=== PATIENT | male | born 1985 | race Caucasian/White ===

== ENCOUNTER 2018-11-16 16:47 | Emergency (ER) | payer BC, OTHER ==
[2018-11-16] MEDS ORDERED: DIPHTH,PERTUSS(ACELL),TET 0.5 ML DISP.SYRIN IM ONE ×2 (16:55→17:10)
--- NOTE | 2018-11-16 16:55 | PDOC ---
Rapid Medical Evaluation Time Seen by Provider: 11/16/18 16:49 Medical Evaluation: Allergies Allergy/AdvReac Type Severity Reaction Status Date / Time No Known Allergies Allergy Verified 02/01/15 00:11 11/16/18 16:50 Patient presents to ED with complaints of: fell into gas holding tank which lifted up when he steeped on it yesterday . Now with left leg and lower back pain, hx diabetes, unknown last tdap patient on brief exam: noted abrasion to left ant gil, tender over posterior aspect of left knee Patient ordered for: tdap Patient to proceed to the ED Discharge Disposition - Diagnosis Fall, Strain of muscle, fascia and tendon of lower back, initial encounter, Abrasion of leg, left - Discharge Dispostion Disposition: HOME Condition at time of disposition: Stable - Prescriptions Prescriptions: Cyclobenzaprine HCl [Flexeril 10 mg] 10 mg PO HS PRN #10 tablet PRN Reason: Muscle Spasms - Referrals Referrals: Dean Garcia DO [Staff Physician] - Ward Persaud MD [Primary Care Provider] - - Patient Instructions Additional Instructions: Please take the muscle relaxer as directed, Avoid antiinflamtory medications. Tylenol as directed for pain. Return to the emergency room for worsening symptoms. Please follow up with orthopedic surgery in 1-2 days for further evaluation and treatment options. Also follow up with your primary care physician for evaluation of the adrenal adenoma which is a incidental benign finding on your CT scan. - Post Discharge Activity
[2018-11-16 16:59] VITALS: BP 135/97; PULSE 84; TEMP 98.1; BMI 27.3
--- NOTE | 2018-11-16 18:43 | PDOC ---
History of Present Illness - General Stated Complaint: LEG AND LOWER BACK PAIN Time Seen by Provider: 11/16/18 16:49 - History of Present Illness Initial Comments: 11/16/18 18:37 33 y/o M with L leg and lower back pain. He states he was getting out of his car yesterday, and fell into a small lining parts sewer causing his L leg to go completely in scrapping the anterior aspect of the left leg and injuring his lower back. Past History - Past Medical History Allergies/Adverse Reactions: Allergies Allergy/AdvReac Type Severity Reaction Status Date / Time No Known Allergies Allergy Verified 11/16/18 16:53 Home Medications: Ambulatory Orders Gemfibrozil [Lopid -] 600 mg PO BID@0700,1630 #30 tablet 12/02/15 Glipizide [Glucotrol -] 5 mg PO BID@0700,1630 #30 tablet 12/02/15 Insulin (Levemir) [Levemir Vial] 18 units SQ HS #10 ml 12/02/15 Lisinopril [Prinivil] 2.5 mg PO DAILY #30 tablet 12/02/15 metFORMIN HCL [Glucophage -] 500 mg PO BID@0700,1630 #30 tablet 12/02/15 Cyclobenzaprine HCl [Flexeril 10 mg] 10 mg PO HS PRN #10 tablet 11/16/18 Anemia: No Asthma: No Cancer: No Cardiac Disorders: No CVA: No COPD: No CHF: No Dementia: No Diabetes: Yes GI Disorders: No Disorders: No HTN: No Hypercholesterolemia: No Liver Disease: No Seizures: No Thyroid Disease: No - Surgical History Abdominal Surgery: No Appendectomy: No Cardiac Surgery: No Cholecystectomy: No Lung Surgery: No Neurologic Surgery: No Orthopedic Surgery: No - Suicide/Smoking/Psychosocial Hx Smoking Status: No Smoking History: Never smoked Have you smoked in the past 12 months: No Number of Cigarettes Smoked Daily: 0 Information on smoking cessation initiated: No Hx Alcohol Use: No Drug/Substance Use Hx: No Substance Use Type: None Hx Substance Use Treatment: No Review of Systems - Review of Systems Musculoskeletal: Yes: See HPI, Back Pain *Physical Exam - Vital Signs Last Vital Signs Temp Pulse Resp BP Pulse Ox 98.1 F 84 19 135/97 96 11/16/18 16:51 11/16/18 16:51 11/16/18 16:51 11/16/18 16:51 11/16/18 16:51 - Physical Exam Comments: 11/16/18 18:40 There is a small superficial abrasion on the anterior aspect of the left lower leg without indication of infection, there is full ROM of the ankle knee and hip , Lumbar spine skin color and temperature are normal. There is midline tenderness along with bilateral paralumbar musculature spasm and tenderness, B LE are free of gross sensory motor deficits. The thighs and calfs are soft and non tender free of any gross sensory or motor deficits NVID. ED Treatment Course - RADIOLOGY Radiology Studies Ordered: Category Date Time Status LUMBAR SPINE CT W/O CONTRAST [CT] Stat CT Scan 11/16/18 18:05 Taken LEG TIB/FIB-LEFT [RAD] Stat Radiology 11/16/18 17:14 Completed SPINE-LUMBAR SACRAL [RAD] Stat Radiology 11/16/18 17:14 Completed - Medications Given in the ED: ED Medications Discontinued Medications Generic Name Dose Route Start Last Admin Trade Name Freq PRN Reason Stop Dose Admin Diphtheria/Tetanus/Acell Pertussis 0.5 ml 11/16/18 16:55 11/16/18 17:13 Boostrix - IM 11/16/18 16:56 0.5 ml .ONCE ONE Administration Medical Decision Making - Medical Decision Making 11/16/18 18:42 X-rays of the L Tib/FIB show no evidenc of fx or trauma LS x-rays show mild DDD greatest at L5-S1 with a questionable pars defect on oblique, CT was ordered. 11/16/18 19:28 R adrenal adenoma otherwise normal studies. *DC/Admit/Observation/Transfer Diagnosis at time of Disposition: Fall, Strain of muscle, fascia and tendon of lower back, initial encounter, Abrasion of leg, left Diagnosis at time of Disposition: (Ruled Out): Abrasion of leg with infection - Discharge Dispostion Disposition: HOME Condition at time of disposition: Stable Decision to Admit order: No - Referrals Referrals: Ward Persaud MD [Primary Care Provider] - Dean Garcia DO [Staff Physician] - - Patient Instructions Additional Instructions: Please take the muscle relaxer as directed, Avoid antiinflamtory medications. Tylenol as directed for pain. Return to the emergency room for worsening symptoms. Please follow up with orthopedic surgery in 1-2 days for further evaluation and treatment options. Also follow up with your primary care physician for evaluation of the adrenal adenoma which is a incidental benign finding on your CT scan. - Post Discharge Activity
== END 2018-11-16 19:45 | disposition home or self-care (01) ==
LOC: JERFT 16:47
PROC: 3E0234Z Introduction of Serum, Toxoid and Vaccine into Muscle, Percutaneous Approach (ICD-10-PCS; principal; 2018-11-16)
DX: S39.012A Strain of muscle, fascia and tendon of lower back, initial encounter (principal); S80.812A Abrasion, left lower leg, initial encounter; W17.89XA Other fall from one level to another, initial encounter; V48.4XXA Person boarding or alighting a car injured in noncollision transport accident, initial encounter; Y92.410 Unspecified street and highway as the place of occurrence of the external cause; Y93.89 Activity, other specified; Y99.8 Other external cause status
CPT/HCPCS: 72100-TC-FY; 72131-TC; 73590-TC-LT-FY; 90715; 99281-25

== ENCOUNTER 2020-06-24 13:08 | Inpatient (IN) | payer BC, OTHER ==
[2020-06-24] MEDS ORDERED: SODIUM CHLORIDE 1,000 ML IV STA (14:39)
[2020-06-24] MEDS ORDERED: DEXAMETHASONE SOD PHOSPHATE 4 MG/1 ML VIAL IVPUSH ONE (14:43)
[2020-06-24] MEDS ORDERED: DEXAMETHASONE SOD PHOSPHATE 10 MG/1 ML VIAL ONE (15:15)
[2020-06-24 15:29] LABS: BASO % 0.3 % (0-2.0); EOS % 0.7 % (0-4.5); HEMATOCRIT 46.7 % (35.4-49); HEMOGLOBIN 16.1 GM/dL (11.7-16.9); LYMPH % 9.5 % (8-40); MCH 29.8 pg (25.7-33.7); MCHC 34.6 g/dl (32.0-35.9); MEAN CELL VOLUME 86.3 fl (80-96); MEAN PLT VOLUME 8.9 fl (7.5-11.1); MONO % 6.6 % (3.8-10.2); NEUT % 82.9 % (42.8-82.8); PLATELET COUNT 489 K/MM3 (134-434); RDW 13.1 % (11.9-15.9); VENOUS BASE EXCESS -3.3 mmol/L (-2-2); VENOUS PCO2 60.4 mmHg (38-52); VENOUS PH 7.242 (7.310-7.410); WHITE BLOOD COUNT 7.5 K/mm3 (4.0-10.0)
[2020-06-24 15:36] LABS: INR 1.03 (0.83-1.09); PROTHROMBIN TIME (PATIENT) 12.6 SEC (9.7-13.0)
[2020-06-24 15:39] LABS: ACTIVATED PTT 26.4 SECONDS (25.2-36.5)
[2020-06-24 15:50] LABS: CHLORIDE 96 mmol/L (98-107); SODIUM 135 mmol/L (136-145)
[2020-06-24 15:52] LABS: ALBUMIN 3.4 g/dl (3.4-5.0); ANION GAP 10 MMOL/L (8-16); BLOOD UREA NITROGEN 14.9 mg/dL (7-18); CALCIUM 9.4 mg/dL (8.5-10.1); CO2 29 mmol/L (21-32); GLUCOSE,RANDOM 300 mg/dL (74-106)
[2020-06-24 15:55] LABS: CREATININE 1.1 mg/dL (0.55-1.3); SGOT/AST 36 U/L (15-37); SGPT/ALT 78 U/L (13-61)
[2020-06-24 15:57] LABS: LDH 405 U/L (87-246); TOT PROT 8.1 g/dl (6.4-8.2)
[2020-06-24 15:58] LABS: ALK PHOS 172 U/L (45-117)
[2020-06-24] MEDS ORDERED: INSULIN REGULAR HUMAN 100 UNITS/ML *VIAL IVPUSH ONE (16:03)
[2020-06-24] MEDS ORDERED: LACTATED RINGERS SOLUTION 1000 ML INFUS.BAG IV STA (16:05)
[2020-06-24 20:29] LABS: URINE APPEARANCE CLEAR; URINE BILIRUBIN NEGATIVE (NEGATIVE); URINE COLOR YELLOW; URINE GLUCOSE (UA) 3+ (NEGATIVE); URINE KETONE 3+ (NEGATIVE); URINE LEUK ESTERASE NEGATIVE (NEGATIVE); URINE NITRITE NEGATIVE (NEGATIVE); URINE PROTEIN NEGATIVE (NEGATIVE)
[2020-06-24] MEDS ORDERED: SENNOSIDES 8.6MG TABLET (FP) PO PRN (23:00)
[2020-06-24] MEDS ORDERED: DOCUSATE SODIUM 100 MG CAPSULE (FP) PO PRN (23:00)
[2020-06-24] MEDS ORDERED: MELATONIN 5 MG TABLETS PO PRN (23:04)
[2020-06-24] MEDS ORDERED: ALBUTEROL SO4 HFA INHALER IH PRN (23:06)
[2020-06-24] MEDS ORDERED: guaiFENesin/CODEINE 5 ML UNIT-DOSE CUPS PO PRN (23:48)
[2020-06-25] MEDS: OSELTAMIVIR PHOSPHATE 75 MG CAPSULE PO SCH ×3 (01:18→21:16)
[2020-06-25 04:51] VITALS: BMI 27.8
[2020-06-25] MEDS: INSULIN SLIDING SCALE (NOVOLOG) 1 VIAL SQ SCH ×4 (06:08→21:29)
[2020-06-25] MEDS ORDERED: PT OWN MED DRAWER 7, Y5N ONE (07:03)
[2020-06-25 08:14] LABS: BASO % 0.1 % (0-2.0); EOS % 0.1 % (0-4.5); HEMATOCRIT 40.2 % (35.4-49); HEMOGLOBIN 14.2 GM/dL (11.7-16.9); LYMPH % 9.4 % (8-40); MCH 30.4 pg (25.7-33.7); MCHC 35.2 g/dl (32.0-35.9); MEAN CELL VOLUME 86.1 fl (80-96); MEAN PLT VOLUME 9.1 fl (7.5-11.1); MONO % 7.6 % (3.8-10.2); NEUT % 82.8 % (42.8-82.8); PLATELET COUNT 467 K/MM3 (134-434); RBC 4.66 M/mm3 (4.00-5.60); RDW 12.9 % (11.9-15.9); WHITE BLOOD COUNT 4.9 K/mm3 (4.0-10.0)
[2020-06-25 08:40] LABS: ALBUMIN 2.8 g/dl (3.4-5.0); BLOOD UREA NITROGEN 17.1 mg/dL (7-18); CALCIUM 8.7 mg/dL (8.5-10.1); MAGNESIUM 2.6 mg/dL (1.8-2.4)
[2020-06-25 08:43] LABS: CREATININE 0.8 mg/dL (0.55-1.3); PHOSPHOROUS 3.3 mg/dL (2.5-4.9)
[2020-06-25 08:45] LABS: BILIRUBIN,TOTAL 1.2 mg/dL (0.2-1); TOT PROT 6.9 g/dl (6.4-8.2)
[2020-06-25] MEDS: FAMOTIDINE 20 MG/50 ML IVPB 20 MG/50 ML MG IVPB SCH ×2 (09:05→21:17)
[2020-06-25] MEDS: DEXAMETHASONE SOD PHOSPHATE 4 MG/1 ML VIAL IVPUSH SCH (09:05)
[2020-06-25] MEDS: ASCORBIC ACID 500 MG TABLET (FP) PO SCH ×2 (09:07→21:16)
[2020-06-25] MEDS: ZINC SULFATE 220 MG CAPSULE (FP) PO SCH (09:07)
[2020-06-25] MEDS: CHOLECALCIFEROL (VIT D3) 1,000 UNIT (25 MCG) TABLET PO SCH (09:07)
[2020-06-25] MEDS ORDERED: ENOXAPARIN NA (PORCINE) 40 MG/0.4 ML DISP.SYRIN SQ SCH (10:00)
[2020-06-25] MEDS: BUDESONIDE/FORMETEROL FUMARATE 160/4.5 mcg INHALER IH SCH ×2 (11:47→21:23)
[2020-06-25] MEDS: ALBUTEROL SO4 HFA INHALER IH SCH ×4 (11:50→21:48)
[2020-06-25] MEDS: INSULIN (LEVEMIR) 100 UNITS/ML UNITS SQ SCH ×2 (14:17→21:28)
[2020-06-25] MEDS: ENOXAPARIN NA (PORCINE) 40 MG/0.4 ML DISP.SYRIN SQ SCH (21:16)
[2020-06-26] MEDS: ALBUTEROL SO4 HFA INHALER IH SCH ×5 (02:25→18:23)
[2020-06-26] MEDS: INSULIN (LEVEMIR) 100 UNITS/ML UNITS SQ SCH (06:25)
[2020-06-26] MEDS: INSULIN SLIDING SCALE (NOVOLOG) 1 VIAL SQ SCH ×3 (06:25→16:40)
[2020-06-26 09:32] LABS: BASO % 0.2 % (0-2.0); EOS % 0.2 % (0-4.5); HEMATOCRIT 43.5 % (35.4-49); HEMOGLOBIN 15.1 GM/dL (11.7-16.9); LYMPH % 9.2 % (8-40); MCH 29.7 pg (25.7-33.7); MCHC 34.6 g/dl (32.0-35.9); MEAN CELL VOLUME 85.8 fl (80-96); MEAN PLT VOLUME 8.5 fl (7.5-11.1); MONO % 8.5 % (3.8-10.2); NEUT % 81.9 % (42.8-82.8); PLATELET COUNT 586 K/MM3 (134-434); RBC 5.07 M/mm3 (4.00-5.60); RDW 13.3 % (11.9-15.9); WHITE BLOOD COUNT 6.9 K/mm3 (4.0-10.0)
[2020-06-26 10:15] LABS: CALCIUM 9.5 mg/dL (8.5-10.1)
[2020-06-26 10:17] LABS: BILIRUBIN,TOTAL 0.8 mg/dL (0.2-1); BLOOD UREA NITROGEN 20.3 mg/dL (7-18); MAGNESIUM 2.6 mg/dL (1.8-2.4)
[2020-06-26 10:20] LABS: CREATININE 0.9 mg/dL (0.55-1.3); PHOSPHOROUS 3.1 mg/dL (2.5-4.9); TOT PROT 7.4 g/dl (6.4-8.2)
[2020-06-26] MEDS ORDERED: PT OWN MED DRAWER 7, Y5N ONE (10:48)
[2020-06-26] MEDS: ZINC SULFATE 220 MG CAPSULE (FP) PO SCH (10:52)
[2020-06-26] MEDS: CHOLECALCIFEROL (VIT D3) 1,000 UNIT (25 MCG) TABLET PO SCH (10:52)
[2020-06-26] MEDS: ASCORBIC ACID 500 MG TABLET (FP) PO SCH (10:52)
[2020-06-26] MEDS: OSELTAMIVIR PHOSPHATE 75 MG CAPSULE PO SCH (10:52)
[2020-06-26] MEDS: BUDESONIDE/FORMETEROL FUMARATE 160/4.5 mcg INHALER IH SCH (10:53)
[2020-06-26] MEDS: FAMOTIDINE 20 MG/50 ML IVPB 20 MG/50 ML MG IVPB SCH (10:53)
[2020-06-26] MEDS: DEXAMETHASONE SOD PHOSPHATE 4 MG/1 ML VIAL IVPUSH SCH (10:54)
[2020-06-26] MEDS: ENOXAPARIN NA (PORCINE) 40 MG/0.4 ML DISP.SYRIN SQ SCH (10:55)
[2020-06-26 15:27] VITALS: BP 126/70; PULSE 76; TEMP 97.7
[2020-06-26] MEDS ORDERED: INSULIN (NOVOLOG) ASPART 100 UNITS/ML 10ML VIAL ONE (18:02)
== END 2020-06-26 19:19 | disposition home or self-care (01) | DRG 177 ==
LOC: JER 13:08 → JERBED 16:44 → J8W 06-25 04:21
PROVIDERS: ADMIT Internal Medicine; ATTEND Internal Medicine
DX: U07.1 COVID-19 (principal); J12.82 Pneumonia due to coronavirus disease 2019; J96.01 Acute respiratory failure with hypoxia; E11.9 Type 2 diabetes mellitus without complications; J10.1 Influenza due to other identified influenza virus with other respiratory manifestations; E11.65 Type 2 diabetes mellitus with hyperglycemia; E66.3 Overweight; Z68.27 Body mass index [BMI] 27.0-27.9, adult
CPT/HCPCS: 36415; 71045-TC-FY; 71275-TC; 80053; 81003; 82010; 82550; 82728; 82803; 82962; 83036; 83615; 83735; 84100; 84484; 85025; 85379; 85610; 85730; 86140; 86769; 87804; 93005; 93010; 94010; 94761; 99285-25; C9803; Q9967; U0003; U0005

== ENCOUNTER 2020-09-09 00:21 | Emergency (ER) | payer OTHER, BC ==
[2020-09-09 00:35] VITALS: BP 126/80; PULSE 92; TEMP 97.9; BMI 25.8
[2020-09-09] MEDS ORDERED: ACETAMINOPHEN 500 MG TABLET (FP) PO ONE (02:03)
[2020-09-09] MEDS ORDERED: ACETAMINOPHEN 325 MG TABLET (FP) ONE (02:12)
[2020-09-09 02:14] LABS: BASO % 0.6 % (0-2.0); EOS % 2.6 % (0-4.5); HEMATOCRIT 44.2 % (35.4-49); HEMOGLOBIN 15.4 GM/dL (11.7-16.9); LYMPH % 22.9 % (8-40); MEAN CELL VOLUME 85.7 fl (80-96); MEAN PLT VOLUME 8.4 fl (7.5-11.1); MONO % 11.4 % (3.8-10.2); NEUT % 62.5 % (42.8-82.8); PLATELET COUNT 198 10^3/uL (134-434); RBC 5.15 M/mm3 (4.00-5.60); RDW 13.2 % (11.9-15.9); WHITE BLOOD COUNT 7.5 K/mm3 (4.0-10.0)
[2020-09-09 02:32] LABS: CHLORIDE 107 mmol/L (98-107); SODIUM 140 mmol/L (136-145)
[2020-09-09 02:33] LABS: ANION GAP 8 MMOL/L (8-16); CO2 25 mmol/L (21-32); GLUCOSE,RANDOM 106 mg/dL (74-106)
[2020-09-09] MEDS ORDERED: POTASSIUM CHLORIDE TABS 20 MEQ TABLET.ER (FP) PO ONE ×2 (02:33→02:46)
[2020-09-09 02:34] LABS: BLOOD UREA NITROGEN 15.1 mg/dL (7-18)
[2020-09-09 02:37] LABS: CREATININE 0.8 mg/dL (0.55-1.3)
== END 2020-09-09 03:31 | disposition home or self-care (01) ==
LOC: JER 00:21
DX: M94.0 Chondrocostal junction syndrome [Tietze] (principal); Z73.3 Stress, not elsewhere classified
CPT/HCPCS: 36415; 71046-TC-FY; 80048; 84484; 85025; 93005; 93010; 99285-25

== ENCOUNTER 2020-10-10 15:22 | Emergency (ER) | payer OTHER, BC ==
[2020-10-10 15:50] VITALS: BP 116/81; PULSE 83; TEMP 98; BMI 25.8
[2020-10-10] MEDS ORDERED: LIDOCAINE 5% TOPICAL PATCH TP ONE (16:27)
[2020-10-10] MEDS ORDERED: LIDOCAINE 5% TOPICAL PATCH ONE (16:29)
[2020-10-10] MEDS ORDERED: KETOROLAC TROMETHAMINE 30 MG/1 ML VIAL ONE (16:32)
[2020-10-10] MEDS ORDERED: KETOROLAC TROMETHAMINE 30 MG/1 ML VIAL IM ONE (16:33)
[2020-10-10] MEDS ORDERED: diazePAM 5 MG TABLET PO ONE (16:36)
[2020-10-10] MEDS ORDERED: diazePAM 5 MG TABLET ONE (16:45)
[2020-10-10] MEDS ORDERED: LIDOCAINE PATCH REMOVAL MC SCH (22:00)
== END 2020-10-10 18:01 | disposition home or self-care (01) ==
LOC: JER 15:22
PROC: 3E0233Z Introduction of Anti-inflammatory into Muscle, Percutaneous Approach (ICD-10-PCS; principal; 2020-10-10)
DX: M54.5 Low back pain (principal)
CPT/HCPCS: 72100-TC-FY; 99284-25

== ENCOUNTER 2021-09-09 16:59 | Emergency (ER) | payer BC ==
[2021-09-09 17:56] VITALS: BP 112/66; PULSE 90; TEMP 98.2; BMI 25.8
[2021-09-09] MEDS ORDERED: KETOROLAC TROMETHAMINE 30 MG/1 ML VIAL IM ONE (19:35)
[2021-09-09] MEDS ORDERED: KETOROLAC TROMETHAMINE 30 MG/1 ML VIAL ONE (19:38)
== END 2021-09-09 20:45 | disposition home or self-care (01) ==
LOC: JER 16:59 → JERFT 16:59
PROC: 3E023GC Introduction of Other Therapeutic Substance into Muscle, Percutaneous Approach (ICD-10-PCS; principal; 2021-09-09)
DX: M54.2 Cervicalgia (principal)
CPT/HCPCS: 72125-TC; 99284-25